=== PATIENT | female | born 1940 | race Caucasian/White ===

== ENCOUNTER 2018-01-12 20:57 | Observation (INO) | payer MEDICARE ==
--- NOTE | 2018-01-12 21:27 | RAD ---
CHEST ONE VIEW 01/12/18 HISTORY: Pain when breathing. COMPARISON: None. FINDINGS: Portable upright chest: Normal cardiac silhouette. The pulmonary vessels and hilum are normal. Costophrenic angles are clear. No mass. No consolidation. No pneumothorax or osseous abnormality. IMPRESSION: No acute cardiopulmonary process. POS: [facility]
[2018-01-12 21:58] LABS: #Basophils 0.1 thou/uL (0.0-0.2); #Eosinphils 0.3 thou/uL (0.0-0.7); #Lymphocytes 1.3 thou/uL (1.20-3.40); #Monocytes 0.3 thou/uL (0.11-0.59); #Neutrophils 2.2 thou/uL (1.40-6.50); %Basophils 1.8 % (0.0-1.0); %Eosinophils 7.6 % (0.0-10.0); %Lymphocytes 31.7 % (21.0-51.0); %Monocytes 7.1 % (0.0-10.0); %Neutrophils 51.9 % (42.0-75.0); Hemoglobin 12.8 g/dL (12.0-16.0); Mean Corpuscular HGB CONC 33.7 g/dL (32.0-36.0); Mean Corpuscular Hemoglobin 29.9 pg (27.0-31.0); Mean Corpuscular Volume 88.9 fL (78.0-98.0); Mean Platelet Volume 6.9 fL (7.4-10.4); Platelet Count 143 thou/uL (130-400); RBC Distribution Width 11.7 % (11.5-14.5); Red Blood Cell (RBC) Count 4.29 mill/uL (4.20-5.40); White Blood Cell (WBC) Count 4.2 thou/uL (4.8-10.8)
[2018-01-12] MEDS ORDERED: Ondansetron HCl/PF 4 MG/2 ML Vial ONE (22:01)
[2018-01-12 22:06] LABS: ALT (SGPT) 21 U/L (8-55); AST (SGOT) 27 U/L (5-34); Alkaline Phosphatase 76 U/L (40-150); Anion Gap 12 mmol/L (10-20); BUN (Urea Nitrogen) 15 mg/dL (9.8-20.1); Bilirubin, Total 0.4 mg/dL (0.2-1.2); CK (CPK) 58 U/L (29-168); Calc. Creatinine Clearance 0 mL/min (70-130); Calcium 9.4 mg/dL (7.8-10.44); Carbon Dioxide 28 mmol/L (23-31); Chloride 105 mmol/L (98-107); Estimated GFR-MDRD 78; Globulin 2.9 g/dL (2.4-3.5); Glucose 113 mg/dL (83-110); Potassium 3.5 mmol/L (3.5-5.1); Protein, Total 6.9 g/dL (6.0-8.3); Sodium 141 mmol/L (136-145)
[2018-01-12 22:07] LABS: CKMB 1.1 ng/mL (0-6.6); Troponin I 0.012 ng/mL (< 0.028)
[2018-01-13 00:23] VITALS: BMI 26.9
[2018-01-13 01:02] LABS: Troponin I 0.017 ng/mL (< 0.028)
[2018-01-13 04:27] LABS: Troponin I Less than 0.010 ng/mL (< 0.028)
[2018-01-13] MEDS ORDERED: Acetaminophen 325 MG TAB PO PRN (06:25)
[2018-01-13] MEDS ORDERED: Ondansetron HCl/PF 4 MG/2 ML Vial IVP PRN (08:22)
[2018-01-13] MEDS ORDERED: Carvedilol 3.125 MG TAB PO SCH (09:00)
[2018-01-13] MEDS ORDERED: Aspirin 325 MG TAB PO SCH (09:00)
--- NOTE | 2018-01-13 10:14 | HP ---
HISTORY OF PRESENT ILLNESS: This is a 77-year-old white female who presents with chest pain. The pa gabino was doing well until approximately 2 months ago, she was starting an exercise program. She los t weight from 169-145. She was attending the [facility]. At that time, she was doing p ull ups and she hurt her left shoulder. She stopped exercising for several weeks. Yesterday at appr oximately 7:00 p.m. her left shoulder pain returned. She does not recall any trauma. However, her l eft shoulder pain has been persistent and very aggravating to the patient. Her son told her to take three 81 mg aspirins. However, the pain persisted. There was no radiation down the arm. There was no diaphoresis. No nausea or vomiting. She is concerned about becoming ill. PAST MEDICAL HISTORY: History of a right thyroid nodule, osteoporosis, asthma. PAST SURGICAL HISTORY: Include appendectomy in 1975, cholecystectomy. MEDICATIONS: Advair 150 b.i.d., sertraline 50 daily. ALLERGIES: SULFA. SOCIAL HISTORY: She is . She works as a university tutor. She has 4 children. PHYSICAL EXAMINATION: VITAL SIGNS: Temperature 98.3, pulse 78, respirations 16, pulse ox 95, blood pressure 145/73. GENERAL: Holding the left shoulder. HEENT: Clear. HEART: Regular rate and rhythm. LUNGS: Clear. ABDOMEN: Soft. EXTREMITIES: With no edema. LABORATORY: White count 4.2, H&H 12 and 38, platelet of 143. Electrolytes normal. Glucose 113, cre atinine 0.73, BUN 15, troponin 1.012, 0.017, 0.010. Lipase 14. Chest x-ray negative. ASSESSMENT: 1. Chest pain, rule out myocardial infarction. 2. Left shoulder strain. 3. Osteoporosis. 4. Asthma. PLAN: 1. Echo and Cardiolite stress today. 2. Ice to left shoulder. 3. Left shoulder x-ray. 4. Motrin and Flexeril upon discharge.
--- NOTE | 2018-01-13 15:52 | NM ---
NUCLEAR MEDICINE CARDIAC STRESS TEST WITH EJECTION FRACTION: HISTORY: Chest pain. COPD, asthma. COMPARISON: None. FINDINGS: Stress and rest were performed after the intravenous administration of 28 and 10.4 mCi Technetium 99m sestamibi, respectively. Adequate left ventricular uptake of radiotracer. No scar or ischemia. Normal wall motion. The calculated ejection fraction is 71%. IMPRESSION: Normal exam. POS: [facility]
[2018-01-13 15:54] VITALS: BP 144/65; TEMP 98.5
[2018-01-13] MEDS ORDERED: Regadenoson 0.4 MG/5 ML SYRINGE ONE (15:56)
--- NOTE | 2018-01-14 13:29 | DIS ---
DATE OF ADMISSION: 01/13/2018 DATE OF DISCHARGE: 01/13/2018 DISCHARGE DIAGNOSES: 1. Chest pain. 2. Left shoulder strain. 3. Osteoporosis. 4. Asthma. DISCHARGE MEDICATIONS: Advair 150 b.i.d., sertraline 50 daily. BRIEF HISTORY: This is a 77-year-old white female who presented with chest pain. She was doing well at approximately 2 months prior. She started an exercise program and has lost weight from 169 to 14 5. She was attending the [facility]. Recently, she was doing pull-ups in her left shou lder and she stopped exercising several weeks ago. At approximately 7:00 p.m., her pain returned. S he does not recall any trauma. HOSPITAL COURSE: The patient was admitted. Her chest pain had resolved spontaneously. She had a Ca rdiolite stress test, which was found to be unremarkable. It appeared that most of her pain was comi ng from her left shoulder strain from working out at the [facility]. Her white count is 14.2, H and H 12 and 38. Troponin less than 0.012, 0.017, 0.010. Blood sugar 113, creatinine 0.73, BUN 15. Chest x-ray was negative.
--- NOTE | 2018-01-18 13:51 | STRESS ---
Acquisition Time: 2018-01-13 10:43:30 Total Exercise Time: 00:01:00 Test Indications: CHEST PAIN Medications: Protocol: LEXISCAN Max HR: 100 BPM 68% of Pred: 145 BPM Max BP: 144/076 mmHG Max Work Load: 1.0 METS RESTING ECG: NORMAL SINUS RHYTHM AT 72 BPM WITH INCOMPLETE RIGHT BUNDLE BRANCH BLOCK SYMPTOMS: DYSPNEA NORMAL BP RESPONSE ECTOPY: NONE ECG STRESS: NO SIGNIFICANT CHANGES INTERPRETATION: AWAIT NUCLEAR IMAGES FOR DEFINITIVE DIAGNOSIS Confirmed by SHIRA REDDY ([id number]), newspaper editor SABRINA KATHLEEN ([id number]) on 01/18/2018 1:50:57 PM Referred By: MD Barrington PATEL Confirmed By:SHIRA REDDY
== END 2018-01-13 17:37 | disposition home or self-care (01) ==
LOC: SCSER 20:57 → 2SW 01-13 00:14
PROVIDERS: ADMIT Family Medicine; ATTEND Family Medicine
DX: R07.9 Chest pain, unspecified (principal); M25.512 Pain in left shoulder; M81.0 Age-related osteoporosis without current pathological fracture; J44.9 Chronic obstructive pulmonary disease, unspecified; Z79.51 Long term (current) use of inhaled steroids; Z79.899 Other long term (current) drug therapy; Z88.2 Allergy status to sulfonamides
CPT/HCPCS: 71045; 78452; 80053; 82550; 82553; 83690; 84484 ×3; 85025; 93005; 93017; 93306; 96374; 96375; 96376; 99285; A9500; G0378; 36415; J2270; J2405; J2785

== ENCOUNTER 2020-09-11 11:51 | Outpatient (CLI) | payer MEDICARE | END 2020-09-11 11:52 | disposition home or self-care (01) | LOC: DTY/OP 11:51 | PROVIDERS: ATTEND Family Medicine | DX: E78.5 Hyperlipidemia, unspecified (principal) | CPT/HCPCS: 97802 ==